=== PATIENT | female | born 1990 | race Caucasian/White ===

== ENCOUNTER 2022-02-07 17:20 | Emergency (ER) | payer MEDICAID, SELFPAY ==
[2022-02-07 17:23] VITALS: BP 98/65; PULSE 104; RESP 16; TEMP 36.6; O2SAT 97; BMI 20.5
--- NOTE | 2022-02-07 18:21 | ED.VIS.LOWEX ---
HPI History of Present Illness Chief Complaint: Wound Narrative Narrative: Patient with past medical history of depression and anxiety presents with puncture wound to her right foot that she sustained today. She went to urgent care and she has not had full immunization against tetanus so they sent her to the emergency department for tetanus immunoglobulin immunization. She states that she was wearing her flip-flops and a screw passed through the sole of it and punctured her midfoot on the right. She denies other injury. Pain is worse with standing and pressure. PFSH PFS Medical History (Updated 02/07/22 @ 18:54 by Opal Shipley) Anxiety Depression Home Medications alprazolam 0.5 mg tablet tab 02/07/22 [History Last Taken Unknown] paroxetine HCl 20 mg tablet tab PO 02/07/22 [History Last Taken Unknown] Allergy/AdvReac Type Severity Reaction Status Date / Time fluoxetine [From Prozac] AdvReac Other Verified 02/07/22 17:25 Social History Smoking Status: Never smoker ROS ROS ED ROS Narrative Constitutional: No fever, no chills. HEENT: No sore throat. No neck pain. No loss of vision. No rhinorrhea. Cardiovascular: No chest pain. No palpitations. No pedal edema. Respiratory: No cough, no shortness of breath. Abdominal: No abdominal pain. No nausea. No vomiting. Genitourinary: No dysuria. No hematuria. Musculoskeletal: No myalgias. No arthralgias. Neurologic: No headaches. No dizziness. No lightheadedness. Skin: No rash. No change in color. Puncture wound to plantar aspect of right foot. Psychiatric: No depression. No anxiety. EXAM Physical Exam Narrative Exam Narrative: Afebrile. Vital signs noted. HEENT: Normocephalic. Atraumatic. PERRL, EOMI. Neck soft and supple. No point tenderness or step off. Cardiovascular: Regular rate and rhythm. No murmurs, rubs, or gallops appreciated. Respiratory: No tachypnea. Lungs clear to auscultation bilaterally. Gastrointestinal: Abdomen soft, nontender, with normoactive bowel sounds. No rebound or guarding. Neurological: Awake. Alert. Nonfocal, nonlateralizing. Skin: No rash. Normal color. No pallor. Noted puncture wound to midfoot on plantar aspect of right foot. Mild tenderness to palpation. No active bleeding. Palpable dorsalis pedis pulse. No erythema. Musculoskeletal: No pedal edema. Full range of motion extremities. Const Vital Signs: 02/07/22 17:23 Temperature 98 F Temperature Source Temporal Pulse Rate 104 H Respiratory Rate 16 Blood Pressure 98/65 Blood Pressure Mean 76 Pulse Ox 97 Oxygen Delivery Method Room Air MDM MDM MDM Narrative Medical decision making narrative: Patient was given tetanus immunoglobulin intramuscularly. Her wound was cleansed. She was given her first dose of ciprofloxacin here and a prescription written for the next week for prophylaxis. I do not feel that coring is indicated. I also do not feel an x-ray is indicated. She will be discharged to follow-up with her primary care provider. Return instructions were reviewed. Disposition is discharged home in stable condition. Discharge Plan Triage Chief Complaint: Wound ED Provider: Allan De Santiago Dx/Rx/DC Orders Clinical Impression: Puncture wound of foot, right, Immunization, tetanus toxoid Instructions: ED Puncture Wound (Foot) Prescriptions: No Action alprazolam 0.5 mg tablet Label Comments: TAKE 1 TABLET BY MOUTH TWICE A DAY NEEDED paroxetine HCl 20 mg tablet PO Label Comments: TAKE 1 TABLET BY MOUTH IN THE EVENING Primary Care Provider: Care Physician,No Primary Referrals: Osmani Main MD [Med Staff - [employer]] - 1 Week if not improving NOT,DEFINED [NON-STAFF] - Disposition Disposition: Home, Self Care Discharge Date/Time: 02/07/22 19:42
[2022-02-07] MEDS: Ciprofloxacin 500 MG Tablet PO (19:36)
== END 2022-02-07 19:42 | disposition home or self-care (01) ==
LOC: ED 18:30
PROVIDERS: Emergency Provider Emergency Medicine; Visit Provider Emergency Medicine
DX: S91.331A Puncture wound without foreign body, right foot, initial encounter (principal); W26.8XXA Contact with other sharp object(s), not elsewhere classified, initial encounter; F32.A Depression, unspecified; F41.9 Anxiety disorder, unspecified; Z79.899 Other long term (current) drug therapy; Z23 Encounter for immunization
CPT/HCPCS: 90471; 99283; J1670

== ENCOUNTER 2022-03-22 12:45 | Emergency (ER) | payer MEDICAID, SELFPAY ==
[2022-03-22 12:46] VITALS: BP 113/74; PULSE 83; RESP 16; TEMP 36.6; O2SAT 100; BMI 22.6
--- NOTE | 2022-03-22 13:03 | ED.RN ---
Patient does NOT want to file a workmans comp claim.
--- NOTE | 2022-03-22 13:27 | EDS_ITS ---
HPI History of Present Illness Chief Complaint: Lower Extremity Injury Detail of Chief Complaint: Injury to her right leg Informant: patient Narrative Narrative: Patient presents the emergency department complaint of injury to the right leg that occurred while she was working and accidentally hit the corner of the bed with her right [place]. Patient does not want to file this under Workmen's Comp. Patient able to bear weight. She was concerned about the swelling immediately. [facility] Medical History (Updated 03/22/22 @ 13:[address] Crissy Granados DO) Anxiety Depression Home Medications alprazolam 0.5 mg tablet 0.5 tab PO Q8H PRN PRN Anxiety 02/07/22 [History Last Taken Unknown] paroxetine HCl 20 mg tablet 20 tab PO DAILY 02/07/22 [History Last Taken Unknown] Allergy/AdvReac Type Severity Reaction Status Date / Time fluoxetine [From Prozac] AdvReac Other Verified 03/22/22 12:45 Social History Smoking Status: Current every day smoker tobacco type: cigarettes ROS ROS ED Review of Systems ROS Unobtainable: other Constitutional Constitutional ED: Reports lethargy; Denies chills, fever(s), sweats or weight loss Eyes Eyes: Denies blurry vision, change in vision or diplopia ENT ENT ED: Denies rhinorrhea or sore throat Cardiovascular Cardiovascular: Denies chest pain, orthopnea or racing heartbeat Respiratory/Chest Respiratory/Chest: Denies cough, dyspnea, dyspnea on exertion, orthopnea or s putum Gastrointestinal Gastrointestinal: Denies abdominal pain, diarrhea, nausea or vomiting Genitourinary Genitourinary ED: Denies dysuria, hematuria or urinary frequency Musculoskeletal Musculoskeletal: Reports other Details: Right leg pain/injury ; Denies arthralgias, back pain, myalgias or neck pain Integumentary Denies abscess, Abrasions or rash Neurologic Neurologic: Denies headache(s) or weakness Psychiatric Psychiatric: Denies anxiety, depression or suicidal thoughts Endocrine Endocrinology: Denies polydipsia, polyphagia or polyuria Hematologic/Lymphatic Hematologic/Lymphatic: Denies easy bleeding, easy bruising or lymphadenopathy Allergic/Immunologic Allergic/Immunologic ED: Denies mouth swelling, tongue swelling or urticaria EXAM Physical Exam Const Vital Signs: 03/22/22 12:46 Temperature 97.8 F Temperature Source Temporal Pulse Rate 83 Respiratory Rate 16 Blood Pressure 113/74 Blood Pressure Mean 87 Pulse Ox 100 Oxygen Delivery Method Room Air Positive well nourished and well developed General Appearance ED: well developed and NAD HEENT Reports TM's clear and moist mucous membranes normocephalic and atraumatic; Negative for trauma or tenderness Tympanic Membrane ED: Yes TM's clear Eyes PERRL and EOMs intact bilaterally General Eye ED: Negative for pale conjunctiva or scleral icterus Neck no lymphadenopathy, supple and no JVD General: Negative for tenderness Chest Wall inspection of chest normal and palpation of chest normal Chest: Negative for tenderness Resp normal respiratory effort and clear to auscultation bilaterally Effort and Inspection: Negative for respiratory distress or pain with movement Auscultation: Negative for rhonchi, wheezes or diminished lung sounds Cardio regular rate, regular rhythm, S1 normal heart sound, S2 normal heart sound and no murmurs Peripheral Pulses: pulses 2+ throughout GI normal to inspection, nondistended, normoactive bowel sounds, soft to palpation, non-tender, non-distended and no masses Back/Spine no CVA tenderness and no thoracic nor lumbar tenderness Extremity Extremity Narrative: Right leg-patient has ecchymosis and bruising to the mid anterior tibia. Patient has a superficial abrasion patient has normal range of motion at the foot flexion and extension. No pain to the fibula. General Extremety ED: Negative for edema General Extremity: Negative for edema Neuro oriented x3, CN's II-XII intact bilaterally, no sensory deficits noted and gait normal Sensorium / Orientation: awake, alert, oriented to person, oriented to place and oriented to time Motor Exam: strength 5/5 throughout and strength abnormal Psych mental status grossly normal Skin no rashes or lesions noted and no wounds MDM MDM MDM Narrative Medical decision making narrative: Patient has a contusion with superficial abrasion to the right anterior tibia. I do not feel clinically there is any type of fracture and she is able to bear weight without difficulty. I do not feel x-rays are indicated and she is in agreement. Patient will be given an Akash wrap and advised use ibuprofen and Tylenol for discomfort. Patient use ice to the area. Discharged home in stable condition. Discharge Plan Triage Chief Complaint: Lower Extremity Injury ED Provider: Crissy Granados Dx/Rx/DC Orders Clinical Impression: Contusion of leg, right Instructions: Bone Contusion, ED Contusion, Lower Extremity Prescriptions: No Action alprazolam 0.5 mg tablet 0.5 tab PO Q8H PRN PRN (Reason: Anxiety) Label Comments: TAKE 1 TABLET BY MOUTH TWICE A DAY NEEDED paroxetine HCl 20 mg tablet 20 tab PO DAILY Label Comments: TAKE 1 TABLET BY MOUTH IN THE EVENING Primary Care Provider: Care Physician,No Primary Referrals: Virgilio Herman MD [Med Staff - Active Staff] - Care Physician,No Primary [Primary Care Provider] - Disposition Disposition: Home, Self Care
== END 2022-03-22 13:36 | disposition home or self-care (01) ==
PROVIDERS: Emergency Provider Emergency Medicine; Visit Provider Emergency Medicine
DX: S80.11XA Contusion of right lower leg, initial encounter (principal); W22.8XXA Striking against or struck by other objects, initial encounter; F32.A Depression, unspecified; F41.9 Anxiety disorder, unspecified; F17.210 Nicotine dependence, cigarettes, uncomplicated; Z79.899 Other long term (current) drug therapy
CPT/HCPCS: 99282